=== PATIENT | female | born 1945 | race Caucasian/White ===

== ENCOUNTER 2017-06-25 16:08 | Emergency (ER) | payer MEDICARE, OTHER ==
[~2017-06-25 16:08] MED LIST: ISOVUE-370 76%-LOCM 1 ML ONE
[2017-06-25 16:58] LABS: Bilirubin Negative (Negative); Blood, Urine Negative (Negative); Clarity CLOUDY (Clear); Glucose, Urine (Dipstick) Negative (Negative); Leukocyte Small (Negative); Nitrite Positive (Negative); Protein, Urine (Dipstick) Negative (Neg-Trace); Specific Gravity, Urine 1.013 (1.002-1.036); Urobilinogen 0.2 mg/dL (0.2-1.0); pH, Urine 5.5 (5.0-9.0)
[2017-06-25 17:00] LABS: Bacteria/HPF 3+ HPF (None Seen); Hyaline Casts/LPF 7-10 HYALINE CAST LPF (0-3 Hyaline); Pathc Cast-AUWi Flag 0.72 (0-2.49); RBC/HPF 0-3 HPF (0-3); WBC/HPF 0-3 HPF (0-3)
[2017-06-25 17:04] LABS: #Basophils 0.1 thou/uL (0.0-0.2); #Eosinphils 0.1 thou/uL (0.0-0.7); #Lymphocytes 1.5 thou/uL (1.20-3.40); #Monocytes 0.6 thou/uL (0.11-0.59); #Neutrophils 15.9 thou/uL (1.40-6.50); %Basophils 0.4 % (0.0-1.0); %Eosinophils 0.6 % (0.0-10.0); %Lymphocytes 8.4 % (21.0-51.0); %Monocytes 3.4 % (0.0-10.0); %Neutrophils 87.2 % (42.0-75.0); Hemoglobin 14.6 g/dL (12.0-16.0); Mean Corpuscular HGB CONC 34.2 g/dL (32.0-36.0); Mean Corpuscular Hemoglobin 36.1 pg (27.0-31.0); Mean Platelet Volume 6.9 fL (7.4-10.4); Platelet Count 324 thou/uL (130-400); RBC Distribution Width 11.1 % (11.5-14.5); Red Blood Cell (RBC) Count 4.05 mill/uL (4.20-5.40); White Blood Cell (WBC) Count 18.3 thou/uL (4.8-10.8)
[2017-06-25] MEDS ORDERED: Fentanyl 100 MCG/2 ML VIAL ONE ×2 (17:19→22:04)
[2017-06-25 17:26] LABS: ALT (SGPT) 20 U/L (8-55); AST (SGOT) 25 U/L (5-34); Albumin 4.1 g/dL (3.4-4.8); Alcohol Less than 10 mg/dL (Less than 10); Alkaline Phosphatase 95 U/L (40-150); Anion Gap 15 mmol/L (10-20); BUN (Urea Nitrogen) 32 mg/dL (9.8-20.1); Bilirubin, Total 0.8 mg/dL (0.2-1.2); Calc. Creatinine Clearance 0 mL/min (70-130); Calcium 9.7 mg/dL (7.8-10.44); Carbon Dioxide 26 mmol/L (23-31); Chloride 97 mmol/L (98-107); Estimated GFR-MDRD 50; Glucose 126 mg/dL (83-110); Potassium 3.5 mmol/L (3.5-5.1); Protein, Total 7.1 g/dL (6.0-8.3); Sodium 134 mmol/L (136-145)
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
[2017-06-25] MEDS ORDERED: Ketorolac Tromethamine 30 MG/ML VIAL ONE (22:04)
== END 2017-06-25 22:41 | disposition home or self-care (01) ==
LOC: ERS 16:08
DX: S12.000A Unspecified displaced fracture of first cervical vertebra, initial encounter for closed fracture (principal); S12.110A Anterior displaced Type II dens fracture, initial encounter for closed fracture; S00.03XA Contusion of scalp, initial encounter; S40.011A Contusion of right shoulder, initial encounter; E03.9 Hypothyroidism, unspecified; E78.5 Hyperlipidemia, unspecified; I10 Essential (primary) hypertension; I25.2 Old myocardial infarction; Z79.82 Long term (current) use of aspirin; V59.9XXA Occupant (driver) (passenger) of pick-up truck or van injured in unspecified traffic accident, initial encounter
CPT/HCPCS: 36415; 51702; 70450; 70498; 71045; 71260; 72125; 74177; 80053; 80307; 81003; 81015; 85025; 93005; 96361; 96374; 96375; 96376; A4353; J1885; J3010

== ENCOUNTER 2017-07-13 10:03 | Outpatient (CLI) | payer MEDICARE ==
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
== END 2017-07-13 10:04 | disposition home or self-care (01) ==
LOC: TBSIIMAG 10:03
PROVIDERS: ATTEND Neurological Surgery
DX: S12.110A Anterior displaced Type II dens fracture, initial encounter for closed fracture (principal)
CPT/HCPCS: 72040

== ENCOUNTER 2020-03-17 13:33 | Outpatient (CLI) | payer MEDICARE ==
--- NOTE | 2020-03-17 15:13 | ULT ---
EXAM: US Thyroid STANDARD PROVIDED CLINICAL HISTORY: Nodules seen on ultrasound examination and physician's clinic. COMPARISON: None FINDINGS: Right lobe of thyroid gland measures 4.6 cm x 1.2 cm x 1.5 cm 0.5 cm anechoic structure seen in the superior pole right lobe of thyroid gland likely due to cyst. 1.2 cm anechoic rounded circumscribed cystic structure midportion right lobe of thyroid gland with ve ry tiny less than 2 mm echogenic focus along the posterior margin of the cyst. 1.4 cm complex heterogeneous predominantly solid nodule with minimal cystic component inferior pole r ight lobe of thyroid gland near the thyroid isthmus. Left lobe of thyroid gland measures 4.1 cm x 1.3 cm x 1.1 cm. No nodule is seen in the left lobe of thyroid gland. Thyroid isthmus measures 0.5 cm in AP dimensions. IMPRESSION: TI RADS level 4 nodule inferior pole right lobe of thyroid gland. Based on ACR white paper guidelines , follow-up evaluation in one year is recommended for nodules this size.
== END 2020-03-17 13:34 | disposition home or self-care (01) ==
LOC: BICULT 13:33
PROVIDERS: ATTEND Internal Medicine Cardiovascular Disease
DX: E04.1 Nontoxic single thyroid nodule (principal)
CPT/HCPCS: 76536

== ENCOUNTER 2020-05-28 21:17 | Inpatient (IN) | payer MEDICARE ==
[2020-05-28 22:35] LABS: ALT (SGPT) 12 U/L (8-55); AST (SGOT) 29 U/L (5-34); Albumin 3.5 g/dL (3.4-4.8); Alkaline Phosphatase 92 U/L (40-110); Anion Gap 22 mmol/L (10-20); BUN (Urea Nitrogen) 101 mg/dL (9.8-20.1); Bilirubin, Total 0.3 mg/dL (0.2-1.2); Calc. Creatinine Clearance 0 mL/min (70-130); Calcium 7.3 mg/dL (7.8-10.44); Carbon Dioxide 12 mmol/L (23-31); Chloride 90 mmol/L (98-107); Globulin 3.2 g/dL (2.4-3.5); Glucose 103 mg/dL (83-110); Potassium 4.3 mmol/L (3.5-5.1); Protein, Total 6.7 g/dL (5.8-8.1); Sodium 120 mmol/L (136-145)
[2020-05-28 22:58] LABS: Free T4 (Free Thyroxine) 0.64 ng/dL (0.70-1.48); Thyroid Stimulating Hormone 2.5717 uIU/mL (0.35-4.94)
[2020-05-28] MEDS ORDERED: Dexamethasone 10 MG/ML VIAL ONE (23:38)
[2020-05-29] MEDS ORDERED: Levothyroxine 100 MCG SDV IVP SCH ×2 (00:30→01:00)
[2020-05-29] MEDS: Sodium Chloride 0.9% 1,000 ML IV SCH ×3 (00:36→20:34)
[2020-05-29] MEDS ORDERED: Levothyroxine Sodium 200 MCG VIAL IVP SCH (00:40)
[2020-05-29] MEDS: Lidocaine 5% Patch TD SCH (02:08)
[2020-05-29 02:37] LABS: Anion Gap 21 mmol/L (10-20); BUN (Urea Nitrogen) 97 mg/dL (9.8-20.1); Calc. Creatinine Clearance 34 mL/min (70-130); Calcium 7.6 mg/dL (7.8-10.44); Carbon Dioxide 12 mmol/L (23-31); Chloride 92 mmol/L (98-107); Glucose 102 mg/dL (83-110); Sodium 121 mmol/L (136-145)
[2020-05-29 02:54] LABS: SARS-CoV-2 NAA Rapid Test Not Detected (NotDetected)
[2020-05-29 05:13] LABS: #Lymphocytes 0.8 thou/uL (1.20-3.40); #Monocytes 0.1 thou/uL (0.11-0.59); #Neutrophils 10.4 thou/uL (1.40-6.50); %Basophils 0.1 % (0.0-1.0); %Eosinophils 0.1 % (0.0-10.0); %Lymphocytes 6.9 % (21.0-51.0); %Monocytes 0.5 % (0.0-10.0); %Neutrophils 92.4 % (42.0-75.0); Hemoglobin 12.1 g/dL (12.0-16.0); MDiff Complete? YES; Macrocytosis SLIGHT = 6-15 cells (100X) (0-5/hpf); Mean Corpuscular HGB CONC 34.3 g/dL (32.0-36.0); Mean Corpuscular Hemoglobin 37.4 pg (27.0-31.0); Mean Platelet Volume 7.8 fL (7.4-10.4); Platelet Count 280 thou/uL (130-400); Red Blood Cell (RBC) Count 3.25 mill/uL (4.20-5.40); White Blood Cell (WBC) Count 11.3 thou/uL (4.8-10.8)
[2020-05-29 06:16] LABS: Anion Gap 22 mmol/L (10-20); BUN (Urea Nitrogen) 91 mg/dL (9.8-20.1); Calc. Creatinine Clearance 39 mL/min (70-130); Calcium 7.8 mg/dL (7.8-10.44); Carbon Dioxide 11 mmol/L (23-31); Chloride 94 mmol/L (98-107); Glucose 121 mg/dL (83-110); Potassium 3.5 mmol/L (3.5-5.1); Sodium 123 mmol/L (136-145)
[2020-05-29 10:43] LABS: Anion Gap 19 mmol/L (10-20); BUN (Urea Nitrogen) 83 mg/dL (9.8-20.1); Calc. Creatinine Clearance 43 mL/min (70-130); Calcium 7.9 mg/dL (7.8-10.44); Carbon Dioxide 13 mmol/L (23-31); Chloride 97 mmol/L (98-107); Glucose 118 mg/dL (83-110); Potassium 3.5 mmol/L (3.5-5.1); Sodium 125 mmol/L (136-145)
[2020-05-29] MEDS: Transdermal Patch Removal TOP SCH (14:33)
[2020-05-29] MEDS: cefTRIAXone\\ROCEPHIN 1 GM in Sodium Chloride 0.9% 100 ML IVPB SCH (20:33)
[2020-05-29] MEDS: Clopidogrel Bisulfate 75 MG TAB PO SCH (20:33)
[2020-05-29] MEDS: Loratadine 10 MG TAB PO SCH (20:33)
[2020-05-29] MEDS ORDERED: Lisinopril 10 MG TAB PO SCH (21:00)
[2020-05-30] MEDS: Lidocaine 5% Patch TD SCH (02:51)
[2020-05-30 05:09] LABS: #Basophils 0.1 thou/uL (0.0-0.2); #Lymphocytes 1.8 thou/uL (1.20-3.40); #Monocytes 0.6 thou/uL (0.11-0.59); %Basophils 0.8 % (0.0-1.0); %Eosinophils 0.5 % (0.0-10.0); %Lymphocytes 23.7 % (21.0-51.0); %Neutrophils 67.1 % (42.0-75.0); Hemoglobin 11.6 g/dL (12.0-16.0); Mean Corpuscular HGB CONC 34.4 g/dL (32.0-36.0); Mean Corpuscular Hemoglobin 37.8 pg (27.0-31.0); Mean Platelet Volume 7.8 fL (7.4-10.4); Platelet Count 265 thou/uL (130-400); RBC Distribution Width 11.9 % (11.5-14.5); Red Blood Cell (RBC) Count 3.08 mill/uL (4.20-5.40); White Blood Cell (WBC) Count 7.4 thou/uL (4.8-10.8)
[2020-05-30 05:21] LABS: ALT (SGPT) 11 U/L (8-55); AST (SGOT) 28 U/L (5-34); Albumin 3.3 g/dL (3.4-4.8); Alkaline Phosphatase 77 U/L (40-110); Anion Gap 19 mmol/L (10-20); BUN (Urea Nitrogen) 62 mg/dL (9.8-20.1); Bilirubin, Total 0.4 mg/dL (0.2-1.2); Calc. Creatinine Clearance 60 mL/min (70-130); Calcium 8.9 mg/dL (7.8-10.44); Carbon Dioxide 13 mmol/L (23-31); Chloride 104 mmol/L (98-107); Globulin 2.4 g/dL (2.4-3.5); Glucose 90 mg/dL (83-110); Potassium 3.1 mmol/L (3.5-5.1); Protein, Total 5.7 g/dL (5.8-8.1); Sodium 133 mmol/L (136-145)
[2020-05-30] MEDS: Levothyroxine Sodium 25 MCG TAB PO SCH (05:22)
[2020-05-30] MEDS: Sodium Chloride 0.9% 1,000 ML IV SCH ×3 (05:23→20:35)
[2020-05-30] MEDS ORDERED: Levothyroxine Sodium 50 MCG TAB PO SCH (06:00)
[2020-05-30] MEDS ORDERED: Electrolyte Replacement Protocol 1 EACH FS PRN (08:15)
[2020-05-30] MEDS: Atorvastatin Calcium 40 MG TAB PO SCH (08:55)
[2020-05-30] MEDS: Multivitamin W/ Minerals 1 TAB PO SCH (08:55)
[2020-05-30] MEDS: Aspirin Chewable 81 MG TAB PO SCH (08:57)
[2020-05-30] MEDS ORDERED: Furosemide 40 MG TAB PO SCH (09:00)
[2020-05-30] MEDS ORDERED: Potassium Bicarbonate/Cit Ac 25 MEQ TAB PO SCH ×2 (10:45→17:00)
[2020-05-30] MEDS ORDERED: Potassium Chloride 20 MEQ TAB PO SCH (10:45)
[2020-05-30] MEDS ORDERED: Acetaminophen 325 MG TAB PO PRN (12:32)
[2020-05-30 13:44] LABS: Magnesium 1.3 mg/dL (1.6-2.6); Phosphorus 2.4 mg/dL (2.3-4.7)
[2020-05-30] MEDS: traMADol HCl 50 MG TAB PO PRN ×2 (14:06→20:36)
[2020-05-30] MEDS: Transdermal Patch Removal TOP SCH (14:07)
[2020-05-30] MEDS ORDERED: Magnesium Sulfate 4 GM in Sodium Chloride 0.9% 250 ML 250 ML IVPB SCH (14:15)
[2020-05-30] MEDS ORDERED: Acetaminophen 325 MG TAB PO SCH (15:00)
[2020-05-30] MEDS: cefTRIAXone\\ROCEPHIN 1 GM in Sodium Chloride 0.9% 100 ML IVPB SCH (20:34)
[2020-05-30] MEDS: Loratadine 10 MG TAB PO SCH (20:35)
[2020-05-30] MEDS: Senokot S 8.6-50 MG TAB PO SCH (20:36)
[2020-05-30] MEDS: Clopidogrel Bisulfate 75 MG TAB PO SCH (20:36)
[2020-05-31] MEDS: Lidocaine 5% Patch TD SCH (01:31)
[2020-05-31 04:33] LABS: #Basophils 0.1 thou/uL (0.0-0.2); #Lymphocytes 0.8 thou/uL (1.20-3.40); #Monocytes 0.6 thou/uL (0.11-0.59); #Neutrophils 7.4 thou/uL (1.40-6.50); %Basophils 0.7 % (0.0-1.0); %Eosinophils 0.2 % (0.0-10.0); %Lymphocytes 8.9 % (21.0-51.0); %Monocytes 6.5 % (0.0-10.0); %Neutrophils 83.6 % (42.0-75.0); Hemoglobin 12.3 g/dL (12.0-16.0); Mean Corpuscular HGB CONC 32.7 g/dL (32.0-36.0); Mean Corpuscular Hemoglobin 36.4 pg (27.0-31.0); Mean Platelet Volume 7.5 fL (7.4-10.4); Platelet Count 308 thou/uL (130-400); RBC Distribution Width 12.1 % (11.5-14.5); Red Blood Cell (RBC) Count 3.39 mill/uL (4.20-5.40); White Blood Cell (WBC) Count 8.8 thou/uL (4.8-10.8)
[2020-05-31 04:59] LABS: Anion Gap 17 mmol/L (10-20); BUN (Urea Nitrogen) 38 mg/dL (9.8-20.1); Calc. Creatinine Clearance 79 mL/min (70-130); Calcium 9.7 mg/dL (7.8-10.44); Carbon Dioxide 16 mmol/L (23-31); Chloride 106 mmol/L (98-107); Glucose 127 mg/dL (83-110); Magnesium 2.2 mg/dL (1.6-2.6); Phosphorus 1.9 mg/dL (2.3-4.7); Potassium 4.2 mmol/L (3.5-5.1); Sodium 135 mmol/L (136-145)
[2020-05-31] MEDS: PHOS-NAK 1 PKT PACK PO SCH ×2 (05:30→09:00)
[2020-05-31] MEDS: Levothyroxine Sodium 25 MCG TAB PO SCH (05:31)
[2020-05-31] MEDS: Senokot S 8.6-50 MG TAB PO SCH ×2 (08:59→21:16)
[2020-05-31] MEDS: Sodium Bicarbonate Tab 325 MG TAB PO SCH ×3 (08:59→21:16)
[2020-05-31] MEDS: Atorvastatin Calcium 40 MG TAB PO SCH (08:59)
[2020-05-31] MEDS: Multivitamin W/ Minerals 1 TAB PO SCH (08:59)
[2020-05-31] MEDS: Aspirin Chewable 81 MG TAB PO SCH (08:59)
[2020-05-31] MEDS: Ondansetron PF 4 MG/2 ML Vial IVP PRN ×2 (09:00→21:16)
[2020-05-31] MEDS: traMADol HCl 50 MG TAB PO PRN ×2 (09:07→21:16)
[2020-05-31] MEDS: Transdermal Patch Removal TOP SCH (16:06)
[2020-05-31] MEDS: Sodium Chloride 0.9% 1,000 ML IV SCH ×2 (16:09→18:28)
[2020-05-31] MEDS: Loratadine 10 MG TAB PO SCH (21:15)
[2020-05-31] MEDS: cefTRIAXone\\ROCEPHIN 1 GM in Sodium Chloride 0.9% 100 ML IVPB SCH (21:15)
[2020-05-31] MEDS: Clopidogrel Bisulfate 75 MG TAB PO SCH (21:15)
[2020-06-01] MEDS: Lidocaine 5% Patch TD SCH (02:40)
[2020-06-01] MEDS: Ondansetron PF 4 MG/2 ML Vial IVP PRN ×2 (03:07→20:58)
[2020-06-01] MEDS: Levothyroxine Sodium 25 MCG TAB PO SCH (06:54)
[2020-06-01] MEDS ORDERED: Cyanocobalamin 1000 MCG/ML VIAL IM SCH (08:15)
[2020-06-01] MEDS: Sodium Bicarbonate Tab 325 MG TAB PO SCH ×3 (09:52→20:57)
[2020-06-01] MEDS: Aspirin Chewable 81 MG TAB PO SCH (09:53)
[2020-06-01] MEDS: Multivitamin W/ Minerals 1 TAB PO SCH (09:53)
[2020-06-01] MEDS: Atorvastatin Calcium 40 MG TAB PO SCH (09:53)
[2020-06-01] MEDS: Senokot S 8.6-50 MG TAB PO SCH ×2 (09:54→20:57)
[2020-06-01] MEDS: traMADol HCl 50 MG TAB PO PRN ×2 (11:32→20:58)
[2020-06-01 12:02] LABS: Albumin 3.5 g/dL (3.4-4.8); Anion Gap 15 mmol/L (10-20); BUN (Urea Nitrogen) 28 mg/dL (9.8-20.1); BUN/Creatinine Ratio 24.78; Calc. Creatinine Clearance 72 mL/min (70-130); Calcium 9.3 mg/dL (7.8-10.44); Carbon Dioxide 19 mmol/L (23-31); Chloride 105 mmol/L (98-107); Glucose 111 mg/dL (83-110); Magnesium 1.7 mg/dL (1.6-2.6); Phosphorus 2.6 mg/dL (2.3-4.7); Potassium 3.8 mmol/L (3.5-5.1); Sodium 135 mmol/L (136-145)
[2020-06-01] MEDS ORDERED: Magnesium 2 GM/50 ML 2 GM in Premix Bag 1 BAG IVPB SCH (12:30)
[2020-06-01] MEDS: Sodium Chloride 0.9% 1,000 ML IV SCH (14:28)
[2020-06-01] MEDS: Transdermal Patch Removal TOP SCH (14:36)
[2020-06-01] MEDS: cefTRIAXone\\ROCEPHIN 1 GM in Sodium Chloride 0.9% 100 ML IVPB SCH (20:55)
[2020-06-01] MEDS: Cyanocobalamin (Vitamin B-12) 1,000 MCG TAB PO SCH (20:56)
[2020-06-01] MEDS: Clopidogrel Bisulfate 75 MG TAB PO SCH (20:56)
[2020-06-01] MEDS: Loratadine 10 MG TAB PO SCH (20:57)
[2020-06-02] MEDS ORDERED: Methocarbamol 500 MG TAB PO SCH (00:30)
[2020-06-02 02:01] LABS: #Basophils 0.1 thou/uL (0.0-0.2); #Lymphocytes 1.7 thou/uL (1.20-3.40); #Monocytes 0.5 thou/uL (0.11-0.59); %Basophils 1.2 % (0.0-1.0); %Eosinophils 0.4 % (0.0-10.0); %Monocytes 4.7 % (0.0-10.0); %Neutrophils 78.8 % (42.0-75.0); Hemoglobin 12.7 g/dL (12.0-16.0); Mean Corpuscular HGB CONC 34.3 g/dL (32.0-36.0); Mean Corpuscular Hemoglobin 38.5 pg (27.0-31.0); Mean Platelet Volume 7.6 fL (7.4-10.4); Platelet Count 246 thou/uL (130-400); RBC Distribution Width 12.3 % (11.5-14.5); Red Blood Cell (RBC) Count 3.29 mill/uL (4.20-5.40); White Blood Cell (WBC) Count 11.4 thou/uL (4.8-10.8)
[2020-06-02 03:17] LABS: Albumin 3.6 g/dL (3.4-4.8); Anion Gap 17 mmol/L (10-20); BUN (Urea Nitrogen) 25 mg/dL (9.8-20.1); BUN/Creatinine Ratio 18.38; Calc. Creatinine Clearance 60 mL/min (70-130); Calcium 9.6 mg/dL (7.8-10.44); Carbon Dioxide 18 mmol/L (23-31); Chloride 101 mmol/L (98-107); Glucose 127 mg/dL (83-110); Phosphorus 3.2 mg/dL (2.3-4.7); Potassium 3.9 mmol/L (3.5-5.1); Sodium 132 mmol/L (136-145)
[2020-06-02] MEDS ORDERED: Sodium Chloride 0.9% 1,000 ML IV SCH (04:00)
[2020-06-02] MEDS: Lidocaine 5% Patch TD SCH (04:18)
[2020-06-02] MEDS ORDERED: guaiFENesin ER 600 MG TAB PO SCH (04:45)
[2020-06-02] MEDS ORDERED: Furosemide 40 MG/4 ML VIAL SLOW IVP SCH (05:00)
[2020-06-02] MEDS: Levothyroxine Sodium 25 MCG TAB PO SCH (05:26)
[2020-06-02] MEDS: Ondansetron PF 4 MG/2 ML Vial IVP PRN (05:34)
[2020-06-02] MEDS ORDERED: Magnesium 2 GM/50 ML 2 GM in Premix Bag 1 BAG IVPB SCH (06:30)
[2020-06-02] MEDS: Senokot S 8.6-50 MG TAB PO SCH ×2 (09:26→20:43)
[2020-06-02] MEDS: Multivitamin W/ Minerals 1 TAB PO SCH (09:26)
[2020-06-02] MEDS: Furosemide 40 MG TAB PO SCH (09:26)
[2020-06-02] MEDS: Atorvastatin Calcium 40 MG TAB PO SCH (09:26)
[2020-06-02] MEDS: Aspirin Chewable 81 MG TAB PO SCH (09:26)
[2020-06-02] MEDS: Heparin 5,000 UNITS/ML VIAL SC SCH ×2 (09:27→20:43)
[2020-06-02] MEDS ORDERED: Iopamidol-370 76% 500 ML 1 ML ONE (10:28)
[2020-06-02] MEDS ORDERED: Albumin 25% 25 GM/100 ML BOT IVPB SCH (14:00)
[2020-06-02] MEDS: Transdermal Patch Removal TOP SCH (15:00)
[2020-06-02 15:38] LABS: Anion Gap 20 mmol/L (10-20); BUN (Urea Nitrogen) 25 mg/dL (9.8-20.1); Calc. Creatinine Clearance 51 mL/min (70-130); Calcium 9.5 mg/dL (7.8-10.44); Carbon Dioxide 17 mmol/L (23-31); Chloride 98 mmol/L (98-107); Glucose 118 mg/dL (83-110); Potassium 4.2 mmol/L (3.5-5.1); Sodium 131 mmol/L (136-145)
[2020-06-02 15:50] LABS: Troponin I 3.316 ng/mL (< 0.028)
[2020-06-02] MEDS ORDERED: Nitroglycerin 0.4 MG TAB (25 Tab Bottle) SL PRN (15:54)
[2020-06-02] MEDS: Nitroglycerin 2% Ointment 1 INCH/1 GM Packet TOP SCH (16:55)
[2020-06-02] MEDS ORDERED: Furosemide 20 MG/2 ML VIAL SLOW IVP SCH (17:45)
[2020-06-02] MEDS ORDERED: Enoxaparin Sodium 100 MG/ML SYRINGE SC SCH (20:00)
[2020-06-02] MEDS ORDERED: Furosemide 100 MG/10 ML VIAL SLOW IVP SCH (20:00)
[2020-06-02] MEDS: cefTRIAXone\\ROCEPHIN 1 GM in Sodium Chloride 0.9% 100 ML IVPB SCH (20:42)
[2020-06-02] MEDS: Clopidogrel Bisulfate 75 MG TAB PO SCH (20:43)
[2020-06-02] MEDS: Loratadine 10 MG TAB PO SCH (20:43)
[2020-06-02] MEDS: Cyanocobalamin (Vitamin B-12) 1,000 MCG TAB PO SCH (20:43)
[2020-06-02] MEDS: guaiFENesin ER 600 MG TAB PO SCH (21:15)
[2020-06-03] MEDS: Nitroglycerin 2% Ointment 1 INCH/1 GM Packet TOP SCH ×3 (02:36→15:08)
[2020-06-03] MEDS: Lidocaine 5% Patch TD SCH (02:36)
[2020-06-03 04:28] LABS: ALT (SGPT) 17 U/L (8-55); AST (SGOT) 49 U/L (5-34); Albumin 3.4 g/dL (3.4-4.8); Alkaline Phosphatase 104 U/L (40-110); Anion Gap 19 mmol/L (10-20); BUN (Urea Nitrogen) 28 mg/dL (9.8-20.1); Bilirubin, Total 0.4 mg/dL (0.2-1.2); Calc. Creatinine Clearance 48 mL/min (70-130); Calcium 9.5 mg/dL (7.8-10.44); Carbon Dioxide 17 mmol/L (23-31); Chloride 100 mmol/L (98-107); Globulin 2.5 g/dL (2.4-3.5); Glucose 110 mg/dL (83-110); Magnesium 2.2 mg/dL (1.6-2.6); Potassium 3.2 mmol/L (3.5-5.1); Protein, Total 5.9 g/dL (5.8-8.1); Sodium 133 mmol/L (136-145)
[2020-06-03 04:30] LABS: Phosphorus 4.3 mg/dL (2.3-4.7)
[2020-06-03 04:36] LABS: Critical Call Chem Troponin I RESULT DECREASING; Troponin I 2.616 ng/mL (< 0.028)
[2020-06-03 06:04] LABS: #Basophils 0.1 thou/uL (0.0-0.2); #Lymphocytes 1.9 thou/uL (1.20-3.40); #Monocytes 0.8 thou/uL (0.11-0.59); #Neutrophils 11.1 thou/uL (1.40-6.50); %Basophils 0.6 % (0.0-1.0); %Eosinophils 0.2 % (0.0-10.0); %Lymphocytes 13.6 % (21.0-51.0); %Monocytes 5.5 % (0.0-10.0); Hemoglobin 12.4 g/dL (12.0-16.0); Mean Corpuscular HGB CONC 32.5 g/dL (32.0-36.0); Mean Corpuscular Hemoglobin 36.5 pg (27.0-31.0); Mean Platelet Volume 8.1 fL (7.4-10.4); Platelet Count 241 thou/uL (130-400); RBC Distribution Width 12.4 % (11.5-14.5); RBC Morphology Normal; Red Blood Cell (RBC) Count 3.39 mill/uL (4.20-5.40); White Blood Cell (WBC) Count 13.8 thou/uL (4.8-10.8)
[2020-06-03] MEDS ORDERED: Potassium Chloride 20 MEQ TAB PO SCH (06:15)
[2020-06-03] MEDS: Levothyroxine Sodium 25 MCG TAB PO SCH (07:17)
[2020-06-03] MEDS: Senokot S 8.6-50 MG TAB PO SCH ×2 (07:55→21:49)
[2020-06-03] MEDS: Atorvastatin Calcium 40 MG TAB PO SCH (07:55)
[2020-06-03] MEDS: Aspirin Chewable 81 MG TAB PO SCH (07:55)
[2020-06-03] MEDS: guaiFENesin ER 600 MG TAB PO SCH ×2 (07:55→21:48)
[2020-06-03] MEDS: Furosemide 40 MG TAB PO SCH (07:56)
[2020-06-03] MEDS: Multivitamin W/ Minerals 1 TAB PO SCH (07:56)
[2020-06-03] MEDS: Heparin 5,000 UNITS/ML VIAL SC SCH ×2 (07:56→21:49)
[2020-06-03] MEDS ORDERED: Furosemide 40 MG/4 ML VIAL ONE (08:26)
[2020-06-03] MEDS ORDERED: Furosemide 40 MG/4 ML VIAL SLOW IVP SCH (11:15)
[2020-06-03] MEDS: Transdermal Patch Removal TOP SCH (15:08)
[2020-06-03] MEDS: Clopidogrel Bisulfate 75 MG TAB PO SCH (21:47)
[2020-06-03] MEDS: traMADol HCl 50 MG TAB PO PRN (21:48)
[2020-06-03] MEDS: Loratadine 10 MG TAB PO SCH (21:48)
[2020-06-03] MEDS: cefTRIAXone\\ROCEPHIN 1 GM in Sodium Chloride 0.9% 100 ML IVPB SCH (21:48)
[2020-06-03] MEDS: Cyanocobalamin (Vitamin B-12) 1,000 MCG TAB PO SCH (21:48)
[2020-06-04] MEDS: Nitroglycerin 2% Ointment 1 INCH/1 GM Packet TOP SCH ×3 (01:12→16:20)
[2020-06-04] MEDS: Lidocaine 5% Patch TD SCH (01:13)
[2020-06-04 03:45] LABS: #Basophils 0.1 thou/uL (0.0-0.2); #Eosinphils 0.1 thou/uL (0.0-0.7); #Lymphocytes 2.3 thou/uL (1.20-3.40); #Monocytes 1.1 thou/uL (0.11-0.59); #Neutrophils 8.7 thou/uL (1.40-6.50); %Basophils 0.5 % (0.0-1.0); %Eosinophils 0.5 % (0.0-10.0); %Lymphocytes 18.8 % (21.0-51.0); %Monocytes 8.8 % (0.0-10.0); %Neutrophils 71.3 % (42.0-75.0); Hemoglobin 11.7 g/dL (12.0-16.0); Mean Corpuscular Hemoglobin 38.2 pg (27.0-31.0); Mean Platelet Volume 8.3 fL (7.4-10.4); Platelet Count 249 thou/uL (130-400); RBC Distribution Width 12.6 % (11.5-14.5); Red Blood Cell (RBC) Count 3.05 mill/uL (4.20-5.40); White Blood Cell (WBC) Count 12.2 thou/uL (4.8-10.8)
[2020-06-04 04:06] LABS: ALT (SGPT) 17 U/L (8-55); AST (SGOT) 40 U/L (5-34); Albumin 3.3 g/dL (3.4-4.8); Alkaline Phosphatase 103 U/L (40-110); Anion Gap 18 mmol/L (10-20); BUN (Urea Nitrogen) 36 mg/dL (9.8-20.1); Bilirubin, Total 0.5 mg/dL (0.2-1.2); Calc. Creatinine Clearance 50 mL/min (70-130); Calcium 9.1 mg/dL (7.8-10.44); Carbon Dioxide 18 mmol/L (23-31); Chloride 99 mmol/L (98-107); Globulin 2.6 g/dL (2.4-3.5); Glucose 92 mg/dL (83-110); Magnesium 2.1 mg/dL (1.6-2.6); Potassium 3.1 mmol/L (3.5-5.1); Protein, Total 5.9 g/dL (5.8-8.1); Sodium 132 mmol/L (136-145)
[2020-06-04] MEDS: Levothyroxine Sodium 25 MCG TAB PO SCH (06:14)
[2020-06-04] MEDS ORDERED: Electrolyte Replacement Protocol FS PRN (07:15)
[2020-06-04] MEDS ORDERED: Potassium Chloride 20 MEQ TAB PO SCH ×2 (07:15→19:45)
[2020-06-04] MEDS: Ondansetron PF 4 MG/2 ML Vial IVP PRN ×2 (08:39→16:20)
[2020-06-04] MEDS: Heparin 5,000 UNITS/ML VIAL SC SCH ×2 (08:43→21:16)
[2020-06-04] MEDS ORDERED: Furosemide 40 MG/4 ML VIAL IVP SCH (09:00)
[2020-06-04] MEDS: Aspirin Chewable 81 MG TAB PO SCH (09:54)
[2020-06-04] MEDS: Senokot S 8.6-50 MG TAB PO SCH ×2 (09:54→21:17)
[2020-06-04] MEDS: guaiFENesin ER 600 MG TAB PO SCH ×2 (09:54→21:16)
[2020-06-04] MEDS: Multivitamin W/ Minerals 1 TAB PO SCH (09:54)
[2020-06-04] MEDS: Atorvastatin Calcium 40 MG TAB PO SCH (09:54)
[2020-06-04] MEDS: Ondansetron ODT 8 MG TAB SL PRN (10:51)
[2020-06-04] MEDS: ALPRAZolam 0.25 MG TAB PO PRN (12:49)
[2020-06-04] MEDS: Transdermal Patch Removal TOP SCH (13:11)
[2020-06-04] MEDS ORDERED: Cyanocobalamin 1000 MCG/ML VIAL IM SCH (19:45)
[2020-06-04] MEDS ORDERED: Potassium Bicarbonate/Cit Ac 20 MEQ TAB PO SCH (20:00)
[2020-06-04] MEDS: Pantoprazole 40 MG VIAL IVP SCH (21:15)
[2020-06-04] MEDS: Clopidogrel Bisulfate 75 MG TAB PO SCH (21:16)
[2020-06-04] MEDS: Loratadine 10 MG TAB PO SCH (21:16)
[2020-06-05] MEDS ORDERED: Nystatin Powder 15 GM BOT TOP PRN (00:41)
[2020-06-05] MEDS: ALPRAZolam 0.25 MG TAB PO PRN (01:44)
[2020-06-05] MEDS: Lidocaine 5% Patch TD SCH (01:46)
[2020-06-05] MEDS: Levothyroxine Sodium 25 MCG TAB PO SCH (06:28)
[2020-06-05 07:34] LABS: #Basophils 0.1 thou/uL (0.0-0.2); #Eosinphils 0.3 thou/uL (0.0-0.7); #Lymphocytes 1.6 thou/uL (1.20-3.40); #Monocytes 0.7 thou/uL (0.11-0.59); #Neutrophils 7.1 thou/uL (1.40-6.50); %Basophils 1.3 % (0.0-1.0); %Eosinophils 2.9 % (0.0-10.0); %Lymphocytes 16.2 % (21.0-51.0); %Monocytes 7.1 % (0.0-10.0); %Neutrophils 72.6 % (42.0-75.0); Hemoglobin 11.5 g/dL (12.0-16.0); Mean Corpuscular HGB CONC 33.8 g/dL (32.0-36.0); Mean Corpuscular Hemoglobin 38.2 pg (27.0-31.0); Mean Platelet Volume 8.2 fL (7.4-10.4); Platelet Count 279 thou/uL (130-400); RBC Distribution Width 12.8 % (11.5-14.5); Red Blood Cell (RBC) Count 3.02 mill/uL (4.20-5.40); White Blood Cell (WBC) Count 9.8 thou/uL (4.8-10.8)
[2020-06-05 07:40] LABS: Anion Gap 15 mmol/L (10-20); BUN (Urea Nitrogen) 41 mg/dL (9.8-20.1); Calc. Creatinine Clearance 54 mL/min (70-130); Calcium 9.2 mg/dL (7.8-10.44); Carbon Dioxide 24 mmol/L (23-31); Chloride 99 mmol/L (98-107); Glucose 93 mg/dL (83-110); Magnesium 1.9 mg/dL (1.6-2.6); Sodium 135 mmol/L (136-145)
[2020-06-05 07:41] LABS: Phosphorus 2.7 mg/dL (2.3-4.7)
[2020-06-05] MEDS ORDERED: Potassium Chloride 20 MEQ TAB PO SCH (08:00)
[2020-06-05] MEDS ORDERED: Potassium Bicarbonate/Cit Ac 20 MEQ TAB PO SCH (08:00)
[2020-06-05] MEDS ORDERED: Magnesium 2 GM/50 ML 2 GM in Premix Bag 1 BAG IVPB SCH (08:00)
[2020-06-05] MEDS: Ondansetron PF 4 MG/2 ML Vial IVP PRN (08:39)
[2020-06-05] MEDS ORDERED: Potassium Chloride 20 MEQ/100 ML PREMIX BAG IVPB SCH (09:45)
[2020-06-05] MEDS: Potassium Bicarbonate/Cit Ac 20 MEQ TAB PO SCH (09:59)
[2020-06-05] MEDS: Heparin 5,000 UNITS/ML VIAL SC SCH ×2 (09:59→20:44)
[2020-06-05] MEDS: Multivitamin W/ Minerals 1 TAB PO SCH ×2 (10:00→10:52)
[2020-06-05] MEDS: Aspirin Chewable 81 MG TAB PO SCH (10:00)
[2020-06-05] MEDS: Cyanocobalamin (Vitamin B-12) 1,000 MCG TAB PO SCH (10:00)
[2020-06-05] MEDS: guaiFENesin ER 600 MG TAB PO SCH ×3 (10:00→20:45)
[2020-06-05] MEDS: Senokot S 8.6-50 MG TAB PO SCH ×3 (10:01→20:45)
[2020-06-05] MEDS: Pantoprazole 40 MG VIAL IVP SCH ×2 (10:01→20:45)
[2020-06-05] MEDS: traMADol HCl 50 MG TAB PO PRN ×2 (10:01→23:22)
[2020-06-05] MEDS: Atorvastatin Calcium 40 MG TAB PO SCH (10:51)
[2020-06-05] MEDS: Transdermal Patch Removal TOP SCH (14:30)
[2020-06-05] MEDS: Clopidogrel Bisulfate 75 MG TAB PO SCH (20:45)
[2020-06-05] MEDS: Loratadine 10 MG TAB PO SCH (20:45)
[2020-06-05 21:48] LABS: Potassium 3.9 mmol/L (3.5-5.1)
[2020-06-06] MEDS: Lidocaine 5% Patch TD SCH (03:58)
[2020-06-06] MEDS: Levothyroxine Sodium 25 MCG TAB PO SCH (06:13)
[2020-06-06] MEDS: Potassium Bicarbonate/Cit Ac 20 MEQ TAB PO SCH (09:37)
[2020-06-06] MEDS: Aspirin Chewable 81 MG TAB PO SCH (09:37)
[2020-06-06] MEDS: Atorvastatin Calcium 40 MG TAB PO SCH (09:37)
[2020-06-06] MEDS: guaiFENesin ER 600 MG TAB PO SCH ×2 (09:38→20:12)
[2020-06-06] MEDS: Cyanocobalamin (Vitamin B-12) 1,000 MCG TAB PO SCH (09:38)
[2020-06-06] MEDS: Pantoprazole 40 MG VIAL IVP SCH ×2 (09:38→20:12)
[2020-06-06] MEDS: Heparin 5,000 UNITS/ML VIAL SC SCH ×2 (09:38→20:12)
[2020-06-06] MEDS: Senokot S 8.6-50 MG TAB PO SCH ×2 (09:38→20:12)
[2020-06-06] MEDS: Multivitamin W/ Minerals 1 TAB PO SCH (09:38)
[2020-06-06 11:47] LABS: Anion Gap 18 mmol/L (10-20); BUN (Urea Nitrogen) 39 mg/dL (9.8-20.1); Calc. Creatinine Clearance 55 mL/min (70-130); Calcium 9.8 mg/dL (7.8-10.44); Carbon Dioxide 21 mmol/L (23-31); Chloride 101 mmol/L (98-107); Glucose 116 mg/dL (83-110); Potassium 3.9 mmol/L (3.5-5.1); Sodium 136 mmol/L (136-145)
[2020-06-06] MEDS: Transdermal Patch Removal TOP SCH (14:22)
[2020-06-06] MEDS: Carvedilol 3.125 MG TAB PO SCH (16:13)
[2020-06-06] MEDS ORDERED: Furosemide 40 MG TAB PO SCH (16:30)
[2020-06-06] MEDS: Clopidogrel Bisulfate 75 MG TAB PO SCH (20:12)
[2020-06-06] MEDS: Loratadine 10 MG TAB PO SCH (20:12)
[2020-06-06] MEDS: traMADol HCl 50 MG TAB PO PRN (23:54)
[2020-06-07] MEDS: Lidocaine 5% Patch TD SCH (01:49)
[2020-06-07] MEDS: Levothyroxine Sodium 25 MCG TAB PO SCH (06:06)
[2020-06-07] MEDS: Atorvastatin Calcium 40 MG TAB PO SCH (09:18)
[2020-06-07] MEDS: Aspirin Chewable 81 MG TAB PO SCH (09:18)
[2020-06-07] MEDS: Heparin 5,000 UNITS/ML VIAL SC SCH ×2 (09:18→20:00)
[2020-06-07] MEDS: Cyanocobalamin (Vitamin B-12) 1,000 MCG TAB PO SCH (09:19)
[2020-06-07] MEDS: Senokot S 8.6-50 MG TAB PO SCH ×2 (09:19→20:01)
[2020-06-07] MEDS: Multivitamin W/ Minerals 1 TAB PO SCH (09:19)
[2020-06-07] MEDS: guaiFENesin ER 600 MG TAB PO SCH ×2 (09:20→20:00)
[2020-06-07] MEDS: Pantoprazole 40 MG VIAL IVP SCH ×2 (09:20→20:00)
[2020-06-07] MEDS: Potassium Bicarbonate/Cit Ac 20 MEQ TAB PO SCH (09:20)
[2020-06-07] MEDS: Furosemide 40 MG TAB PO SCH (09:33)
[2020-06-07] MEDS ORDERED: Carvedilol 6.25 MG TAB PO SCH ×2 (10:00→17:00)
[2020-06-07] MEDS: Carvedilol 3.125 MG TAB PO SCH (10:11)
[2020-06-07 10:29] LABS: Anion Gap 14 mmol/L (10-20); BUN (Urea Nitrogen) 36 mg/dL (9.8-20.1); Calc. Creatinine Clearance 67 mL/min (70-130); Calcium 9.4 mg/dL (7.8-10.44); Carbon Dioxide 25 mmol/L (23-31); Chloride 101 mmol/L (98-107); Glucose 102 mg/dL (83-110); Magnesium 2.2 mg/dL (1.6-2.6); Sodium 136 mmol/L (136-145)
[2020-06-07] MEDS ORDERED: Sodium Chloride 0.9% 500 ML IV SCH (12:30)
[2020-06-07] MEDS: Transdermal Patch Removal TOP SCH (17:27)
[2020-06-07] MEDS: Clopidogrel Bisulfate 75 MG TAB PO SCH (20:00)
[2020-06-07] MEDS: Loratadine 10 MG TAB PO SCH (20:00)
[2020-06-08] MEDS: Lidocaine 5% Patch TD SCH (03:47)
[2020-06-08] MEDS: Atorvastatin Calcium 40 MG TAB PO SCH (08:56)
[2020-06-08] MEDS: Cyanocobalamin (Vitamin B-12) 1,000 MCG TAB PO SCH (08:56)
[2020-06-08] MEDS: Senokot S 8.6-50 MG TAB PO SCH ×2 (08:56→23:26)
[2020-06-08] MEDS: Aspirin Chewable 81 MG TAB PO SCH (08:56)
[2020-06-08] MEDS: Levothyroxine Sodium 25 MCG TAB PO SCH (08:56)
[2020-06-08] MEDS: Potassium Bicarbonate/Cit Ac 20 MEQ TAB PO SCH (08:57)
[2020-06-08] MEDS: Multivitamin W/ Minerals 1 TAB PO SCH (08:57)
[2020-06-08] MEDS: Furosemide 40 MG TAB PO SCH (08:57)
[2020-06-08] MEDS: guaiFENesin ER 600 MG TAB PO SCH ×3 (08:57→23:36)
[2020-06-08] MEDS: Heparin 5,000 UNITS/ML VIAL SC SCH ×2 (08:57→23:34)
[2020-06-08] MEDS: Carvedilol 3.125 MG TAB PO SCH ×2 (08:58→17:04)
[2020-06-08] MEDS: Pantoprazole 40 MG VIAL IVP SCH ×2 (09:32→23:26)
[2020-06-08 12:06] VITALS: BMI 40.1
[2020-06-08] MEDS: Transdermal Patch Removal TOP SCH (17:04)
[2020-06-08] MEDS: Clopidogrel Bisulfate 75 MG TAB PO SCH (23:25)
[2020-06-08] MEDS: Loratadine 10 MG TAB PO SCH (23:26)
[2020-06-08] MEDS: ALPRAZolam 0.25 MG TAB PO PRN (23:38)
[2020-06-08] MEDS: Ondansetron ODT 8 MG TAB SL PRN (23:44)
[2020-06-09] MEDS: Lidocaine 5% Patch TD SCH (02:52)
[2020-06-09] MEDS: Levothyroxine Sodium 25 MCG TAB PO SCH (05:36)
[2020-06-09 08:39] LABS: Anion Gap 12 mmol/L (10-20); BUN (Urea Nitrogen) 27 mg/dL (9.8-20.1); Calc. Creatinine Clearance 84 mL/min (70-130); Calcium 8.9 mg/dL (7.8-10.44); Carbon Dioxide 28 mmol/L (23-31); Chloride 102 mmol/L (98-107); Glucose 100 mg/dL (83-110); Potassium 3.7 mmol/L (3.5-5.1); Sodium 138 mmol/L (136-145)
[2020-06-09] MEDS: Heparin 5,000 UNITS/ML VIAL SC SCH (09:14)
[2020-06-09] MEDS: Furosemide 40 MG TAB PO SCH (09:21)
[2020-06-09] MEDS: Carvedilol 3.125 MG TAB PO SCH (09:21)
[2020-06-09] MEDS: Aspirin Chewable 81 MG TAB PO SCH (09:22)
[2020-06-09] MEDS: guaiFENesin ER 600 MG TAB PO SCH (09:23)
[2020-06-09] MEDS: Atorvastatin Calcium 40 MG TAB PO SCH (09:23)
[2020-06-09] MEDS: Cyanocobalamin (Vitamin B-12) 1,000 MCG TAB PO SCH (09:23)
[2020-06-09] MEDS: Pantoprazole 40 MG VIAL IVP SCH (09:24)
[2020-06-09] MEDS: Senokot S 8.6-50 MG TAB PO SCH ×2 (09:24→09:27)
[2020-06-09] MEDS: Multivitamin W/ Minerals 1 TAB PO SCH (09:24)
[2020-06-09] MEDS: Potassium Bicarbonate/Cit Ac 20 MEQ TAB PO SCH (09:27)
[2020-06-09 11:14] VITALS: BP 111/63; TEMP 98.3
[2020-06-09] MEDS: Transdermal Patch Removal TOP SCH (13:37)
== END 2020-06-09 14:20 | DRG 682 ==
LOC: ERS 21:17 → 2NO 23:02 → IMCU/EMU 06-02 21:26 → 2NO 06-05 20:05
PROVIDERS: ADMIT Internal Medicine; ATTEND Internal Medicine
DX: N17.9 Acute kidney failure, unspecified (principal); I50.33 Acute on chronic diastolic (congestive) heart failure; G93.41 Metabolic encephalopathy; I21.4 Non-ST elevation (NSTEMI) myocardial infarction; G92 Toxic encephalopathy; E87.2 Acidosis; E87.1 Hypo-osmolality and hyponatremia; N39.0 Urinary tract infection, site not specified; I51.81 Takotsubo syndrome; I25.10 Atherosclerotic heart disease of native coronary artery without angina pectoris; I10 Essential (primary) hypertension; E78.5 Hyperlipidemia, unspecified; E03.9 Hypothyroidism, unspecified; Z51.5 Encounter for palliative care; G89.29 Other chronic pain; Z88.6 Allergy status to analgesic agent; Z79.82 Long term (current) use of aspirin; Z79.02 Long term (current) use of antithrombotics/antiplatelets; Z98.51 Tubal ligation status; Z98.84 Bariatric surgery status; Z95.5 Presence of coronary angioplasty implant and graft; Z83.3 Family history of diabetes mellitus; Z82.49 Family history of ischemic heart disease and other diseases of the circulatory system; E86.0 Dehydration; F51.04 Psychophysiologic insomnia; Z90.49 Acquired absence of other specified parts of digestive tract; N32.81 Overactive bladder; E87.6 Hypokalemia; M54.5 Low back pain; E83.42 Hypomagnesemia; Z68.39 Body mass index [BMI] 39.0-39.9, adult; E53.8 Deficiency of other specified B group vitamins; F32.9 Major depressive disorder, single episode, unspecified; F41.9 Anxiety disorder, unspecified; E83.39 Other disorders of phosphorus metabolism; I11.0 Hypertensive heart disease with heart failure
CPT/HCPCS: 0240U; 36415; 36416; 51702; 71045; 71275; 80048; 80053; 80069; 82533; 82570; 82607; 82746; 83735; 83880; 83930; 83935; 84100; 84300; 84439; 84443; 84484; 84550; 85025; 85379; 87077; 87086; 87186; 93005; 93010; 93306; 96374; C9113; J0696; J1100; J1644; J1650; J1940; J2405; J3420; J3475; J3480; J3490; J7050; P9047; Q0162; Q9967

== ENCOUNTER 2020-06-19 02:52 | Inpatient (IN) | payer MEDICARE ==
[2020-06-19 03:41] VITALS: BMI 37.8
[2020-06-19] MEDS ORDERED: Bisacodyl 5 MG TAB PO PRN (03:48)
[2020-06-19 05:32] LABS: Troponin I 0.014 ng/mL (< 0.028)
[2020-06-19] MEDS: Nitroglycerin 2% Ointment 1 INCH/1 GM Packet TOP SCH ×3 (05:42→20:23)
[2020-06-19 07:44] LABS: Troponin I 0.021 ng/mL (< 0.028)
[2020-06-19] MEDS ORDERED: Enoxaparin Sodium 120 MG/0.8 ML SYRINGE SC SCH ×2 (09:00→10:45)
[2020-06-19] MEDS ORDERED: Clopidogrel Bisulfate 75 MG TAB PO SCH (09:00)
[2020-06-19] MEDS ORDERED: Enoxaparin Sodium 40 MG/0.4 ML SYRINGE SC SCH (09:00)
[2020-06-19] MEDS ORDERED: Communication Order-Pharmacy FS SCH (09:30)
[2020-06-19] MEDS ORDERED: Diazepam 5 MG TAB PO SCH (09:30)
[2020-06-19] MEDS ORDERED: Sodium Chloride 0.9% 1,000 ML IV SCH (09:30)
[2020-06-19] MEDS ORDERED: Enoxaparin Sodium 100 MG/ML SYRINGE SC SCH (10:28)
[2020-06-19] MEDS: Aspirin Chewable 81 MG TAB PO SCH (10:41)
[2020-06-19] MEDS: Famotidine 20 MG TAB PO SCH ×2 (10:41→20:25)
[2020-06-19] MEDS ORDERED: Iopamidol 370 76% 100 ML VIAL ONE (11:06)
[2020-06-19] MEDS ORDERED: Nitroglycerin 0.4 MG TAB (25 Tab Bottle) SL PRN (11:52)
[2020-06-19 12:05] LABS: #Basophils 0.1 thou/uL (0.0-0.2); #Eosinphils 0.5 thou/uL (0.0-0.7); #Lymphocytes 1.7 thou/uL (1.20-3.40); #Monocytes 0.3 thou/uL (0.11-0.59); #Neutrophils 4.5 thou/uL (1.40-6.50); %Basophils 1.5 % (0.0-1.0); %Eosinophils 7.7 % (0.0-10.0); %Lymphocytes 23.6 % (21.0-51.0); %Monocytes 4.2 % (0.0-10.0); Mean Corpuscular HGB CONC 32.2 g/dL (32.0-36.0); Mean Corpuscular Hemoglobin 36.7 pg (27.0-31.0); Mean Platelet Volume 7.3 fL (7.4-10.4); Platelet Count 382 thou/uL (130-400); Red Blood Cell (RBC) Count 3.01 mill/uL (4.20-5.40); White Blood Cell (WBC) Count 7.1 thou/uL (4.8-10.8)
[2020-06-19 12:25] LABS: Anion Gap 13 mmol/L (10-20); BUN (Urea Nitrogen) 12 mg/dL (9.8-20.1); Calc. Creatinine Clearance 100 mL/min (70-130); Calcium 8.6 mg/dL (7.8-10.44); Carbon Dioxide 27 mmol/L (23-31); Chloride 101 mmol/L (98-107); Glucose 97 mg/dL (83-110); Potassium 3.3 mmol/L (3.5-5.1); Sodium 138 mmol/L (136-145); Uric Acid 8.4 mg/dL (2.6-6.0)
[2020-06-19] MEDS ORDERED: Furosemide 40 MG TAB PO SCH (14:30)
[2020-06-19] MEDS: Carvedilol 3.125 MG TAB PO SCH (18:07)
[2020-06-19 18:09] LABS: SARS-CoV-2 PCR by NAA Not Detected (NotDetected)
[2020-06-19] MEDS: Loratadine 10 MG TAB PO SCH (20:25)
[2020-06-19] MEDS: Enoxaparin Sodium 120 MG/0.8 ML SYRINGE SC SCH (20:26)
[2020-06-19] MEDS ORDERED: Allopurinol 100 MG TAB PO SCH (22:00)
[2020-06-19] MEDS ORDERED: Potassium Chloride 20 MEQ TAB PO SCH (22:00)
[2020-06-20 04:43] LABS: Hemoglobin 10.5 g/dL (12.0-16.0); Platelet Count 342 thou/uL (130-400)
[2020-06-20 05:05] LABS: Cardiac Risk 3.3 (Less than 4.5)
[2020-06-20] MEDS: Levothyroxine Sodium 25 MCG TAB PO SCH (05:51)
[2020-06-20] MEDS: Nitroglycerin 2% Ointment 1 INCH/1 GM Packet TOP SCH (06:18)
[2020-06-20] MEDS ORDERED: Furosemide 40 MG TAB PO SCH (07:30)
[2020-06-20] MEDS: Aspirin Chewable 81 MG TAB PO SCH (07:45)
[2020-06-20] MEDS: Cyanocobalamin (Vitamin B-12) 1,000 MCG TAB PO SCH (07:45)
[2020-06-20] MEDS: Famotidine 20 MG TAB PO SCH ×2 (07:45→21:09)
[2020-06-20] MEDS: Allopurinol 100 MG TAB PO SCH (07:45)
[2020-06-20] MEDS: Furosemide 40 MG TAB PO SCH (07:45)
[2020-06-20] MEDS: Clopidogrel Bisulfate 75 MG TAB PO SCH (07:46)
[2020-06-20] MEDS: Multivit, Therapeutic 1 TAB PO SCH (07:46)
[2020-06-20] MEDS: Carvedilol 3.125 MG TAB PO SCH ×2 (07:47→16:05)
[2020-06-20] MEDS: Enoxaparin Sodium 120 MG/0.8 ML SYRINGE SC SCH (07:47)
[2020-06-20] MEDS: Apixaban 5 MG TAB PO SCH (21:08)
[2020-06-20] MEDS: Loratadine 10 MG TAB PO SCH (21:09)
[2020-06-21] MEDS ORDERED: Lorazepam 1 MG TAB PO SCH (01:00)
[2020-06-21] MEDS: Levothyroxine Sodium 25 MCG TAB PO SCH (05:12)
[2020-06-21] MEDS: Multivit, Therapeutic 1 TAB PO SCH (08:27)
[2020-06-21] MEDS: Clopidogrel Bisulfate 75 MG TAB PO SCH (08:27)
[2020-06-21] MEDS: Allopurinol 100 MG TAB PO SCH (08:27)
[2020-06-21] MEDS: Cyanocobalamin (Vitamin B-12) 1,000 MCG TAB PO SCH (08:27)
[2020-06-21] MEDS: Apixaban 5 MG TAB PO SCH ×2 (08:27→21:02)
[2020-06-21] MEDS: Famotidine 20 MG TAB PO SCH ×2 (08:27→21:02)
[2020-06-21] MEDS: Furosemide 40 MG TAB PO SCH (09:44)
[2020-06-21] MEDS: Carvedilol 3.125 MG TAB PO SCH ×2 (09:45→18:18)
[2020-06-21] MEDS: guaiFENesin ER 600 MG TAB PO SCH (21:01)
[2020-06-21] MEDS: Loratadine 10 MG TAB PO SCH (21:01)
[2020-06-21] MEDS: Senokot S 8.6-50 MG TAB PO SCH (21:02)
[2020-06-21] MEDS: Lorazepam 1 MG TAB PO SCH (21:03)
[2020-06-22] MEDS: Levothyroxine Sodium 25 MCG TAB PO SCH (05:21)
[2020-06-22] MEDS: Furosemide 40 MG TAB PO SCH (09:14)
[2020-06-22] MEDS: Potassium Bicarbonate/Cit Ac 20 MEQ TAB PO SCH (09:14)
[2020-06-22] MEDS: Allopurinol 100 MG TAB PO SCH (09:14)
[2020-06-22] MEDS: Apixaban 5 MG TAB PO SCH ×2 (09:15→20:44)
[2020-06-22] MEDS: Famotidine 20 MG TAB PO SCH ×2 (09:16→20:45)
[2020-06-22] MEDS: Clopidogrel Bisulfate 75 MG TAB PO SCH (09:16)
[2020-06-22] MEDS: Cyanocobalamin (Vitamin B-12) 1,000 MCG TAB PO SCH (09:16)
[2020-06-22] MEDS: guaiFENesin ER 600 MG TAB PO SCH ×2 (09:16→20:46)
[2020-06-22] MEDS: Multivit, Therapeutic 1 TAB PO SCH (09:16)
[2020-06-22] MEDS: Atorvastatin Calcium 40 MG TAB PO SCH (09:16)
[2020-06-22] MEDS: Senokot S 8.6-50 MG TAB PO SCH ×2 (09:17→20:49)
[2020-06-22] MEDS: Carvedilol 3.125 MG TAB PO SCH ×2 (09:17→18:22)
[2020-06-22 11:40] LABS: Hemoglobin 12.2 g/dL (12.0-16.0); Platelet Count 357 thou/uL (130-400)
[2020-06-22] MEDS: Lorazepam 1 MG TAB PO SCH (20:45)
[2020-06-22] MEDS: Loratadine 10 MG TAB PO SCH (20:49)
[2020-06-23] MEDS: Levothyroxine Sodium 25 MCG TAB PO SCH (05:48)
[2020-06-23] MEDS: Potassium Bicarbonate/Cit Ac 20 MEQ TAB PO SCH (09:37)
[2020-06-23] MEDS: Atorvastatin Calcium 40 MG TAB PO SCH (09:37)
[2020-06-23] MEDS: Cyanocobalamin (Vitamin B-12) 1,000 MCG TAB PO SCH (09:38)
[2020-06-23] MEDS: Clopidogrel Bisulfate 75 MG TAB PO SCH (09:38)
[2020-06-23] MEDS: Apixaban 5 MG TAB PO SCH ×2 (09:38→20:40)
[2020-06-23] MEDS: Multivit, Therapeutic 1 TAB PO SCH (09:38)
[2020-06-23] MEDS: Senokot S 8.6-50 MG TAB PO SCH ×2 (09:38→20:40)
[2020-06-23] MEDS: Furosemide 40 MG TAB PO SCH (09:39)
[2020-06-23] MEDS: guaiFENesin ER 600 MG TAB PO SCH ×2 (09:39→20:41)
[2020-06-23] MEDS: Allopurinol 100 MG TAB PO SCH (09:39)
[2020-06-23] MEDS: Carvedilol 3.125 MG TAB PO SCH ×2 (09:40→18:06)
[2020-06-23] MEDS: Famotidine 20 MG TAB PO SCH ×2 (09:41→20:41)
[2020-06-23] MEDS: Lidocaine 5% Patch TD SCH (18:07)
[2020-06-23] MEDS: Lorazepam 1 MG TAB PO SCH (20:39)
[2020-06-23] MEDS: Loratadine 10 MG TAB PO SCH (20:41)
[2020-06-23] MEDS: ALPRAZolam 0.25 MG TAB PO PRN (22:35)
[2020-06-24] MEDS: Levothyroxine Sodium 25 MCG TAB PO SCH (05:51)
[2020-06-24] MEDS: ALPRAZolam 0.25 MG TAB PO PRN (05:51)
[2020-06-24] MEDS ORDERED: Transdermal Patch Removal TOP SCH (06:00)
[2020-06-24] MEDS: Apixaban 5 MG TAB PO SCH (09:22)
[2020-06-24] MEDS: guaiFENesin ER 600 MG TAB PO SCH (09:22)
[2020-06-24] MEDS: Furosemide 40 MG TAB PO SCH (09:22)
[2020-06-24] MEDS: Carvedilol 3.125 MG TAB PO SCH ×2 (09:22→17:04)
[2020-06-24] MEDS: Cyanocobalamin (Vitamin B-12) 1,000 MCG TAB PO SCH (09:22)
[2020-06-24] MEDS: Potassium Bicarbonate/Cit Ac 20 MEQ TAB PO SCH (09:23)
[2020-06-24] MEDS: Multivit, Therapeutic 1 TAB PO SCH (09:23)
[2020-06-24] MEDS: Famotidine 20 MG TAB PO SCH (09:23)
[2020-06-24] MEDS: Clopidogrel Bisulfate 75 MG TAB PO SCH (09:23)
[2020-06-24] MEDS: Allopurinol 100 MG TAB PO SCH (09:24)
[2020-06-24] MEDS: Atorvastatin Calcium 40 MG TAB PO SCH (09:28)
[2020-06-24] MEDS: Senokot S 8.6-50 MG TAB PO SCH (09:33)
[2020-06-24] MEDS ORDERED: Ketorolac Tromethamine 30 MG/ML VIAL IVP SCH (10:45)
[2020-06-24] MEDS: Lidocaine 5% Patch TD SCH (17:04)
[2020-06-24 17:46] VITALS: BP 121/96; TEMP 98
== END 2020-06-24 17:47 | disposition swing bed (61) | DRG 176 ==
LOC: 2NO 02:52 → INTOOBSV 02:52 → OBSVTOIN 06-20 16:33
PROVIDERS: ADMIT Internal Medicine; ATTEND Family Medicine
DX: I26.99 Other pulmonary embolism without acute cor pulmonale (principal); I51.81 Takotsubo syndrome; N17.9 Acute kidney failure, unspecified; E87.1 Hypo-osmolality and hyponatremia; I13.0 Hypertensive heart and chronic kidney disease with heart failure and stage 1 through stage 4 chronic kidney disease, or unspecified chronic kidney disease; I50.22 Chronic systolic (congestive) heart failure; Z20.822 Contact with and (suspected) exposure to COVID-19; I25.10 Atherosclerotic heart disease of native coronary artery without angina pectoris; E03.9 Hypothyroidism, unspecified; N18.2 Chronic kidney disease, stage 2 (mild); E87.6 Hypokalemia; E78.5 Hyperlipidemia, unspecified; F41.9 Anxiety disorder, unspecified; D53.9 Nutritional anemia, unspecified; D51.9 Vitamin B12 deficiency anemia, unspecified; Z95.828 Presence of other vascular implants and grafts; Z88.6 Allergy status to analgesic agent; Z79.899 Other long term (current) drug therapy; Z79.890 Hormone replacement therapy; Z95.5 Presence of coronary angioplasty implant and graft; Z90.49 Acquired absence of other specified parts of digestive tract; Z79.82 Long term (current) use of aspirin; Z79.02 Long term (current) use of antithrombotics/antiplatelets
CPT/HCPCS: 36415; 71275; 80048; 80061; 82565; 83880; 84550; 85014; 85018; 85025; 85049; 87635; 93970; 96372; G0378; J1650; J1885; Q9967; U0003; U0005

== ENCOUNTER 2021-03-25 13:11 | Outpatient (CLI) | payer MEDICARE | END 2021-03-25 13:12 | disposition home or self-care (01) | LOC: ULT 13:11 | PROVIDERS: ATTEND Internal Medicine Cardiovascular Disease | DX: E04.1 Nontoxic single thyroid nodule (principal) | CPT/HCPCS: 76536 ==

== ENCOUNTER 2023-07-25 14:02 | Outpatient (CLI) | payer MEDICARE ==
[2023-07-25 16:03] LABS: #Monocytes 0.35 10x3/uL (0.0-1.1); %Basophils 1.4 % (0.0-2.0); %Eosinophils 2.9 % (0.0-6.0); %Lymphocytes 24.2 % (18.0-47.0); %Neutrophils 66.2 % (40.0-75.0); Hematocrit 36.1 % (34.9-44.5); Mean Corpuscular HGB CONC 33.2 g/dL (32.0-36.0); Mean Corpuscular Hemoglobin 34.3 pg (27.0-33.0); Mean Corpuscular Volume 103.1 fL (81.6-98.3); Mean Platelet Volume 10.9 fL (7.4-10.4); Platelet Count 241 10x3/uL (150-450); RBC Distribution Width 13.2 % (11.5-14.5)
[2023-07-25 16:11] LABS: INR-International Normal Ratio 1.1; Prothrombin Time 11.4 sec (9.5-12.1)
[2023-07-25 16:23] LABS: Anion Gap 14 mmol/L (10-20); BUN (Urea Nitrogen) 23 mg/dL (9.8-20.1); Calc. Creatinine Clearance 0 mL/min (70-130); Calcium 8.7 mg/dL (7.8-10.44); Carbon Dioxide 19 mmol/L (23-31); Chloride 110 mmol/L (98-107); Estimated GFR 81; Glucose 107 mg/dL (83-110); Potassium 4.4 mmol/L (3.5-5.1); Sodium 139 mmol/L (136-145)
== END 2023-07-25 14:03 | disposition home or self-care (01) ==
LOC: LABBT 14:02
PROVIDERS: ATTEND Orthopaedic Surgery
DX: Z01.818 Encounter for other preprocedural examination (principal); M16.11 Unilateral primary osteoarthritis, right hip
CPT/HCPCS: 80048; 85025; 85610; 87081; 93005; 93010

== ENCOUNTER 2023-08-01 09:53 | Inpatient (IN) | payer OTHER ==
[2023-07-25 14:53] VITALS: BMI 33.3
[2023-08-01] MEDS ORDERED: fentaNYL 50 mcg/mL 1 mL Vial ONE ×2 (11:09→14:44)
[2023-08-01] MEDS ORDERED: Midazolam HCl 2 mg/2 ml Vial ONE (11:09)
[2023-08-01] MEDS ORDERED: CEFAZOLIN 2 GM VIAL ONE (11:32)
[2023-08-01] MEDS ORDERED: Tranexamic Acid 1,000 MG/10 ML VIAL ONE (11:32)
[2023-08-01] MEDS ORDERED: Vancomycin (BATCH) 1.5 GM/300 ML BAG ONE (11:33)
[2023-08-01] MEDS ORDERED: Sodium Chloride 0.9% 100 ML ONE ×2 (11:33→11:35)
[2023-08-01] MEDS ORDERED: PROPOFOL 20 ML ONE (12:05)
[2023-08-01] MEDS ORDERED: fentaNYL PF 100 MCG/2 ML SYRINGE ONE (12:05)
[2023-08-01] MEDS ORDERED: Dexmedetomidine 200 MCG/2 ML VIAL ONE (12:05)
[2023-08-01] MEDS ORDERED: Lidocaine 1.5% w/Epi 1:200K 30 ML VIAL (Epid Use) ONE (12:20)
[2023-08-01] MEDS ORDERED: Naloxone HCl 0.4 mg/ml Vial IVP PRN (13:00)
[2023-08-01] MEDS ORDERED: Ondansetron PF 4 MG/2 ML Vial IVP PRN ×2 (13:00→15:23)
[2023-08-01] MEDS ORDERED: Naloxone HCl 0.4 mg/ml Vial IV PRN (13:00)
[2023-08-01] MEDS ORDERED: Zolpidem Tartrate 5 MG TAB PO PRN ×2 (13:00→15:23)
[2023-08-01] MEDS ORDERED: diphenhydrAMINE 50 MG/ML VIAL IM PRN (13:00)
[2023-08-01] MEDS ORDERED: diphenhydrAMINE 50 MG/ML VIAL IVP PRN (13:00)
[2023-08-01] MEDS ORDERED: diphenhydrAMINE 25 MG CAP PO PRN ×2 (13:00→15:23)
[2023-08-01] MEDS ORDERED: Promethazine HCl 25 MG SUPP PR PRN (13:00)
[2023-08-01] MEDS ORDERED: Promethazine HCl 25 MG/ML VIAL IM PRN ×2 (13:00→15:23)
[2023-08-01] MEDS ORDERED: Moisturizing Cream (Eucerin) 113 GM JAR TOP PRN (13:00)
[2023-08-01] MEDS ORDERED: Dexamethasone 20 MG/5 ML VIAL ONE (13:09)
[2023-08-01] MEDS ORDERED: PHENYLEPHRINE-NS 100 MCG/ML 10 ML SYRINGE ONE (13:27)
[2023-08-01] MEDS ORDERED: Rocuronium Bromide 10 MG/ML (10ML VIAL) ONE (13:57)
[2023-08-01] MEDS ORDERED: SUGAMMADEX SODIUM 200 MG/2 ML VIAL ONE ×2 (13:58→14:10)
[2023-08-01] MEDS ORDERED: Promethazine HCl 25 MG/ML VIAL ONE (15:07)
[2023-08-01] MEDS ORDERED: traMADol HCl 50 MG TAB ONE (15:16)
[2023-08-01] MEDS ORDERED: Vancomycin 1.5 GM in Sodium Chloride 0.9% 250 ML 300 ML IVPB SCH (15:23)
[2023-08-01] MEDS ORDERED: Bupivacaine 0.25% HCL 30 ML VIAL ONE (15:29)
[2023-08-01] MEDS: Sodium Chloride 0.9% 1,000 ML IV SCH (21:02)
[2023-08-01] MEDS: Aspirin 81 mg Enteric Coated Tablet PO SCH (21:19)
[2023-08-01] MEDS: Trospium 20 MG TAB PO SCH (21:19)
[2023-08-01] MEDS: rOPINIRole HCl 0.25 MG TAB PO SCH (21:19)
[2023-08-01] MEDS: Allopurinol 100 MG TAB PO SCH (21:19)
[2023-08-01] MEDS: CEFAZOLIN 2 GM in Sodium Chloride 0.9% 100 ML IVPB SCH (21:19)
[2023-08-01] MEDS: traMADol HCl 50 MG TAB PO PRN (21:26)
[2023-08-01] MEDS: Vancomycin (BATCH) 1.5 GM in Premix 1 BAG IVPB SCH (23:53)
[2023-08-02] MEDS: FENTANYL 500 MCG/10 ML VIAL 500 MCG, Bupivacaine 0.75% 10 ML in Sodium Chloride 0.9% 80 ML EPIDURAL SCH (04:36)
[2023-08-02] MEDS: Levothyroxine Sodium 50 MCG TAB PO SCH (04:37)
[2023-08-02 06:02] LABS: Hematocrit 29.2 % (36.0-47.0); Hemoglobin 9.6 g/dL (12.0-16.0); Mean Corpuscular HGB CONC 32.9 g/dL (32.0-36.0); Mean Corpuscular Hemoglobin 33.7 pg (27.0-31.0); Mean Corpuscular Volume 102.5 fL (78.0-98.0); Mean Platelet Volume 10.7 fL (7.4-10.4); Platelet Count 217 10x3/uL (130-400); RBC Distribution Width 13.2 % (11.5-14.5); Red Blood Cell (RBC) Count 2.85 mill/uL (4.20-5.40)
[2023-08-02] MEDS: Multivitamin W/ Minerals 1 TAB PO SCH (09:31)
[2023-08-02] MEDS: Carvedilol 3.125 MG TAB PO SCH (09:31)
[2023-08-02] MEDS: Calcium Carbonate 600 MG + Vit D TAB PO SCH (09:31)
[2023-08-02] MEDS: Furosemide 40 MG TAB PO SCH (09:31)
[2023-08-02] MEDS: Escitalopram Oxalate 10 mg Tablet PO SCH (09:31)
[2023-08-02] MEDS: Atorvastatin Calcium 40 MG TAB PO SCH (09:31)
[2023-08-02] MEDS: Ferrous Gluconate 324 MG TAB PO SCH (09:31)
[2023-08-02] MEDS: Gabapentin 300 MG CAP PO SCH (09:32)
[2023-08-02] MEDS ORDERED: Albuterol 200 PUFF (6.7GM INHALER) INH PRN (09:58)
[2023-08-02] MEDS: Senokot S 8.6-50 MG TAB PO SCH (18:03)
[2023-08-03 05:41] LABS: Hematocrit 26.1 % (36.0-47.0); Hemoglobin 8.6 g/dL (12.0-16.0); Mean Corpuscular Hemoglobin 34.1 pg (27.0-31.0); Mean Corpuscular Volume 103.6 fL (78.0-98.0); Mean Platelet Volume 10.6 fL (7.4-10.4); Platelet Count 197 10x3/uL (130-400); RBC Distribution Width 13.5 % (11.5-14.5); Red Blood Cell (RBC) Count 2.52 mill/uL (4.20-5.40)
[2023-08-03 09:27] LABS: Anion Gap 13 mmol/L (10-20); BUN (Urea Nitrogen) 15 mg/dL (9.8-20.1); Calc. Creatinine Clearance 84 mL/min (70-130); Calcium 7.9 mg/dL (7.8-10.44); Carbon Dioxide 21 mmol/L (23-31); Chloride 104 mmol/L (98-107); Estimated GFR 77; Glucose 96 mg/dL (83-110); Potassium 3.3 mmol/L (3.5-5.1); Sodium 135 mmol/L (136-145)
[2023-08-03] MEDS ORDERED: oxyCODONE 5 MG TAB PO PRN (11:10)
[2023-08-03] MEDS: Acetaminophen 500 MG TAB PO SCH (12:09)
[2023-08-03] MEDS: traMADol HCl 50 MG TAB PO PRN (21:12)
[2023-08-03] MEDS: Apixaban 2.5 MG TAB PO SCH (21:13)
[2023-08-04 06:19] LABS: Anion Gap 11 mmol/L (10-20); BUN (Urea Nitrogen) 14 mg/dL (9.8-20.1); Calc. Creatinine Clearance 95 mL/min (70-130); Calcium 7.8 mg/dL (7.8-10.44); Carbon Dioxide 21 mmol/L (23-31); Chloride 100 mmol/L (98-107); Estimated GFR 88; Glucose 100 mg/dL (83-110); Sodium 129 mmol/L (136-145)
[2023-08-04 06:46] LABS: Hematocrit 27.2 % (36.0-47.0); Mean Corpuscular HGB CONC 33.1 g/dL (32.0-36.0); Mean Corpuscular Hemoglobin 33.6 pg (27.0-31.0); Mean Corpuscular Volume 101.5 fL (78.0-98.0); Mean Platelet Volume 10.8 fL (7.4-10.4); Platelet Count 196 10x3/uL (130-400); RBC Distribution Width 13.6 % (11.5-14.5); Red Blood Cell (RBC) Count 2.68 mill/uL (4.20-5.40)
[2023-08-04] MEDS: Potassium Chloride 20 MEQ TAB PO SCH ×2 (09:40→13:11)
[2023-08-04 13:13] VITALS: BP 112/66; TEMP 98.3
== END 2023-08-04 16:16 | disposition home or self-care (01) | DRG 470 ==
LOC: SDC 09:53 → SJJU 15:23 → OBSVTOIN 08-03 07:10
PROVIDERS: ADMIT Orthopaedic Surgery; ATTEND Orthopaedic Surgery
PROC: 0SR90J9 Replacement of Right Hip Joint with Synthetic Substitute, Cemented, Open Approach (ICD-10-PCS; principal; 2023-08-01)
DX: M16.51 Unilateral post-traumatic osteoarthritis, right hip (principal); M87.851 Other osteonecrosis, right femur; E78.5 Hyperlipidemia, unspecified; E03.9 Hypothyroidism, unspecified; F41.8 Other specified anxiety disorders; N18.9 Chronic kidney disease, unspecified; I12.9 Hypertensive chronic kidney disease with stage 1 through stage 4 chronic kidney disease, or unspecified chronic kidney disease; J45.909 Unspecified asthma, uncomplicated; Z87.81 Personal history of (healed) traumatic fracture
CPT/HCPCS: 36415; 72170; 80048; 85027; 96365; 96367; 96375; 96376; C1713; C1776; C1889; G0378; J0665; J1100; J2001; J2550; J2704; J3010; J3370; J3490; J7050